=== PATIENT | female | born 1955 | race Caucasian/White ===

== ENCOUNTER 2022-08-02 11:58 | Inpatient (IN) | payer OTHER ==
[~2022-08-02] VITALS: Ht 157.5 cm; Wt 53.5 kg
--- NOTE | 2022-08-02 12:10 | NUR ---
BIBA FOR GROUND LEVEL FALL WITH SUSPECTED RIGHT HIP FRACTURE. A/O X 3, ABLE TO MAKE NEEDS KNOWN, TOLERATING WELL ON ROOM AIR.
--- NOTE | 2022-08-02 12:18 | NUR ---
MOVE SHEET SUBMITTED.
--- NOTE | 2022-08-02 12:42 | NUR ---
IV ACCESS OBTAINED VIA RIGHT CHEST PORTACATH USING STERILE TECHNIQUE. BLOOD SAMPLES OBTAINED.
[2022-08-02 12:50] LABS: WHITE BLOOD COUNT (AUTO) 3.3 K/uL (4.3-11.0)
[2022-08-02 12:54] LABS: BASOPHILS % (AUTO) 0.8 % (0.0-2.0); EOSINOPHILS % (AUTO) 2.3 % (0.0-6.0); HEMATOCRIT 27 % (33-45); HEMOGLOBIN 9.1 g/dL (11.5-14.8); LYMPHOCYTES # (AUTO) 1.1 K/uL (0.8-4.8); LYMPHOCYTES % (AUTO) 34.1 % (20.0-44.0); MEAN CORPUSCULAR HGB CONC 34 g/dl (31.0-36.0); MEAN CORPUSCULAR VOLUME 82 fL (82-100); MONOCYTES # (AUTO) 0.2 K/uL (0.1-1.30); MONOCYTES % (AUTO) 7.4 % (2.0-12.0); NEUTROPHILS # (AUTO) 1.9 K/uL (1.8-8.9); NEUTROPHILS % (AUTO) 55.4 % (43.0-81.0); PLATELET COUNT (AUTO) 170 K/uL (150-450); RED BLOOD CELL COUNT(AUTO) 3.28 MIL/uL (4.0-5.2)
[2022-08-02 12:57] LABS: CALCIUM, SERUM 8.3 mg/dL (8.5-10.1); CREATININE 0.9 mg/dL (0.6-1.3)
[2022-08-02] MEDS ORDERED: FENTANYL PF 100MCG/2ML AMPUL ONE ×3 (12:57→15:00)
[2022-08-02 13:00] LABS: POTASSIUM 2.4 mmol/L (3.5-5.1)
[2022-08-02] MEDS ORDERED: FENTANYL PF 100MCG/2ML AMPUL IV ONE ×3 (13:00→15:30)
--- NOTE | 2022-08-02 14:03 | NUR ---
MIK [phone] X [phone]
[2022-08-02] MEDS ORDERED: COLC0.6T67 PO (14:09)
[2022-08-02] MEDS ORDERED: SENN-261 PO (14:09)
[2022-08-02] MEDS ORDERED: DOCU100C36 PO (14:09)
[2022-08-02] MEDS ORDERED: APIX5TAB PO (14:09)
[2022-08-02] MEDS ORDERED: GABA300C PO (14:09)
[2022-08-02] MEDS ORDERED: ASPI-1420 PO (14:09)
[2022-08-02] MEDS ORDERED: BENZ-38 PO (14:09)
[2022-08-02] MEDS ORDERED: IBUP-1953 PO (14:09)
[2022-08-02] MEDS ORDERED: ATOR40TA PO (14:09)
[2022-08-02] MEDS ORDERED: PANT40TA49 PO (14:09)
[2022-08-02] MEDS ORDERED: SERT50TA12 PO (14:09)
[2022-08-02] MEDS ORDERED: CARV6.252 PO (14:09)
[2022-08-02] MEDS ORDERED: SCOP1PAT11 TD (14:09)
[2022-08-02] MEDS ORDERED: OXYC10TA49 PO (14:09)
[2022-08-02] MEDS ORDERED: ACET-73 PO (14:09)
[2022-08-02] MEDS ORDERED: ABEM150T PO (14:09)
[2022-08-02] MEDS ORDERED: LIDO700A30 TP (14:09)
[2022-08-02] MEDS ORDERED: FURO20TA4 PO (14:09)
[2022-08-02] MEDS ORDERED: LOSA25TA27 PO (14:09)
[2022-08-02] MEDS ORDERED: FENT1PAT10 TP (14:09)
[2022-08-02] MEDS ORDERED: MECL-159 PO (14:09)
[2022-08-02] MEDS ORDERED: POLY17PO4 PO (14:09)
[2022-08-02] MEDS ORDERED: CETI10TA14 PO (14:09)
[2022-08-02] MEDS ORDERED: ONDA-97 PO (14:09)
[2022-08-02] MEDS ORDERED: NALO0.4V2 SQ (14:09)
--- NOTE | 2022-08-02 14:15 | NUR ---
CALLED [facility] DR. LOUIE.
[2022-08-02] MEDS ORDERED: POTASSIUM CHLORIDE 20 MEQ TAB.PRT.SR PO ONE ×2 (14:28→14:30)
--- NOTE | 2022-08-02 14:39 | NUR ---
CALLED [facility]SF[facility] [phone] CASE BEING DECLINED DUE TO HIGH CENSUS ALERT PER LYNDSEY. ONLY OPEN TO STEMI, TRANSPLANT.
--- NOTE | 2022-08-02 14:43 | NUR ---
CALLED [facility] [phone] CLOSED DUE TO CAPACITY PER DAYANARA.
[2022-08-02 15:09] LABS: BILIRUBIN,URINE NEGATIVE (NEGATIVE); COLOR,URINE YELLOW (YELLOW); LEUKOCYTE ESTERASE ,URINE TRACE (NEGATIVE); NITRITE, URINE POSITIVE (NEGATIVE); PH,URINE 5.5 (5.0-8.0); PROTEIN,URINE NEGATIVE (NEGATIVE); UGLUCOSE NEGATIVE (NEGATIVE); UROBILINOGEN,URINE 0.2 EU/dL (0.2)
--- NOTE | 2022-08-02 15:15 | NUR ---
CALLED [facility] [phone] X [phone] HIGHER LEVEL OF CARE TEAM 20 MINS NOT ABLE TO LEAVE A VM.
[2022-08-02 15:20] LABS: BACTERIA,URINE 4+ /HPF (None Seen); RBC,URINE 0-2 /HPF (0-2); SQUAMOUS EPITHELIAL CELL,UR Few /HPF (None Seen); WBC,URINE 21-50 /HPF (0-3)
--- NOTE | 2022-08-02 16:07 | NUR ---
MORALES THAO FROM [facility] WILL DO PEER TO PEER.
[2022-08-02] MEDS ORDERED: HYDROMORPHONE 1 MG/1 ML DISP.SYRIN IV ONE ×2 (17:00→21:00)
[2022-08-02] MEDS ORDERED: HYDROMORPHONE 1 MG/1 ML DISP.SYRIN ONE ×2 (17:20→20:45)
--- NOTE | 2022-08-02 17:23 | NUR ---
CALLED [facility] [phone] PER KUNAL STILL AT CAPACITY AND ONLY TAKING STABLISHED [facility] PATIENTS, TRANSPLANT, AND PEDS AT THIS TIME.
--- NOTE | 2022-08-02 17:28 | NUR ---
CALLED [facility] [phone] CLOSED DUE TO CAPACITY PER JUAREZ COORDINATOR #[id number]
--- NOTE | 2022-08-02 17:29 | NUR ---
ASKED ADMITTING TO CONTACT CM AND ASK TO CALL US BACK.
--- NOTE | 2022-08-02 17:35 | NUR ---
ESTEVAN CM [phone] X [phone]
--- NOTE | 2022-08-02 17:52 | NUR ---
DERRICK BARRETO CM DIRECT NUMBER [phone] ASKED TO CALL: [facility] [phone] [facility] [phone] [facility] [phone] [facility] [phone] [facility] [phone] AUTH IS [id number] ACCEPTING HOSPITAL CAN APPLY THE AUTH. PLEASE CALL DERRICK SWAIN TO INFORM.
[2022-08-02] MEDS ORDERED: ONDANSETRON HCL/PF 4 MG/2 ML VIAL IV ONE (18:30)
--- NOTE | 2022-08-02 18:44 | NUR ---
[facility] [phone] SEEMA WILL CHECK AND CALL US BACK.
--- NOTE | 2022-08-02 18:50 | NUR ---
CALLED [facility] [phone] [facility] CONVEYOR INSTALLER
--- NOTE | 2022-08-02 18:55 | NUR ---
CALLED [facility] [phone] [facility] DOES NOT HAVE ONCOLOGY RECOVERY COACH
--- NOTE | 2022-08-02 18:57 | NUR ---
CALLED [facility] [phone] [place] DOES NOT HAVE ONCOLOGY COMPUTER TECHNOLOGY TEACHER
--- NOTE | 2022-08-02 18:58 | NUR ---
CALLED [facility] [phone] [place] DOES NOT HAVE ONCOLOGY DESKTOP ADMINISTRATOR
--- NOTE | 2022-08-02 18:59 | NUR ---
CALLED [facility] [phone] [facility] DOES NOT HAVE ONCOLOGY SOIL FERTILITY EXTENSION SPECIALIST
[2022-08-02] MEDS ORDERED: ONDANSETRON HCL/PF 4 MG/2 ML VIAL ONE (19:08)
--- NOTE | 2022-08-02 19:48 | NUR ---
PER FABRICE HERNANDEZ:DR. ANDRADE GILBERT ONCOLOGIST AT [facility] WILL REVIEW AND ACCEPT PT. AWAITING ACCEPTANCE AND PEER TO PEER.
--- NOTE | 2022-08-02 21:31 | NUR ---
faxed facesheet and radiology report to [facility] FAX#[phone]
--- NOTE | 2022-08-02 21:53 | NUR ---
PER BEKA BALTAZAR FROM [facility] DID NOT ACCEPT PT FOR HIGHER LEVEL OF CARE.
[2022-08-03] MEDS ORDERED: IV NS 0.9% 1,000 ML IV ONE (00:30)
[2022-08-03] MEDS ORDERED: CEFTRIAXONE 1 G in IV D5W 50 ML IV ONE (00:30)
[2022-08-03] MEDS ORDERED: POTASSIUM CHLORIDE 20 MEQ TAB.PRT.SR PO ONE ×2 (00:30→12:30)
[2022-08-03] MEDS ORDERED: CEFTRIAXONE 1GM BAG (ER ONLY) 50 ML IV ONE (01:24)
[2022-08-03] MEDS ORDERED: HYDROMORPHONE 1 MG/1 ML DISP.SYRIN IV ONE (01:30)
[2022-08-03] MEDS ORDERED: HYDROMORPHONE 1 MG/1 ML DISP.SYRIN ONE (01:32)
--- NOTE | 2022-08-03 02:14 | NUR ---
CALLED FOR REPORT, NURSE ON LUNCH
--- NOTE | 2022-08-03 02:28 | NUR ---
SECONF ATTEMPT FOR REPORT MADE, NURSE NOT AVAILBLE
--- NOTE | 2022-08-03 02:50 | NUR ---
REPORT GIVEN TO KWAN
[2022-08-03] MEDS ORDERED: Z GUARD REMEDY 4 OZ OINT TP PRN (03:00)
[2022-08-03] MEDS ORDERED: ACETAMINOPHEN 325 MG TABLET PO PRN (03:00)
[2022-08-03] MEDS ORDERED: NALOXONE HCL 0.4 MG/ML AMPUL IV PRN (03:00)
--- NOTE | 2022-08-03 03:05 | NUR ---
MED SURG ADMISSION RN NOTE RECEIVED A PT 67 Y.O. FEMALE FROM ER. TRANSFERRED BY A GURTEREZA A/O X3 BARBADIAN SPEAKING. FAMILY AT BEDSIDE. CODE STATUS OBTAINED FROM PT AND SON. PT DX PATHOLOGICAL RIGHT HIP FRACTURE SECONDARY TO HYPOKALEMIA. PT NOTED WITH PAIN ON THE RIGHT HIP. DUE MEDS GIVEN. IV ACCESS ON THE RIGHT CHEST PORTACATH INTACT AND PATENT. KEPT PT CLEAN AND DRY. NOTED COLON CATH IN PLACE DRAINING CLEAR YELLOW COLOR URINE. SIDE RAILS UPX2. SKIN ASSESSMENT DONE. PT BELONGING CHECKLIST DONE. BED IS LOCKED AND IN LOWEST POSITION. WILL CONTINUE TO MONITOR
--- NOTE | 2022-08-03 03:15 | NUR ---
PT TRANSPORTED TO ROOM 118 VIA GURNEY HANDOFF GIVEN TO RN AT BEDSIDE
[2022-08-03] MEDS: ENOXAPARIN SODIUM 40 MG/0.4 ML DISP.SYRIN SQ SCH ×2 (03:31→21:37)
[2022-08-03 04:00] VITALS: BP 175/86; TEMP 99.4
[2022-08-03] MEDS: HYDROMORPHONE INJ 2 MG/ML DISP.SYRIN IV PRN ×3 (05:36→19:35)
--- NOTE | 2022-08-03 06:55 | NUR ---
MS RN CLOSING NOTE PT AWAKE MOANING IN PAIN. PAIN MED IS GIVEN ORDERED. PT IS A/OX3. SON AT BEDSIDE. ALL DUE MEDS GIVEN. IV ACCESS ON THE RIGHT CHEST PORTACATH INTACT AND PATENT. KEPT PT CLEAN AND DRY. NOTED COLON CATH IN PLACE DRAINING CLEAR YELLOW COLOR URINE. SIDE RAILS UPX2. CALL LIGHT WITH IN REACH. BED IS LOCKED AND IN LOWEST POSITION. WILL ENDORSE CARE TO AM SHIFT RN.
[2022-08-03 07:01] LABS: BASOPHILS % (AUTO) 0.3 % (0.0-2.0); EOSINOPHILS % (AUTO) 0.8 % (0.0-6.0); HEMATOCRIT 30 % (33-45); LYMPHOCYTES # (AUTO) 0.8 K/uL (0.8-4.8); LYMPHOCYTES % (AUTO) 15.7 % (20.0-44.0); MEAN CORPUSCULAR HGB CONC 33 g/dl (31.0-36.0); MEAN CORPUSCULAR VOLUME 83 fL (82-100); MONOCYTES # (AUTO) 0.3 K/uL (0.1-1.30); MONOCYTES % (AUTO) 5.5 % (2.0-12.0); NEUTROPHILS # (AUTO) 3.8 K/uL (1.8-8.9); NEUTROPHILS % (AUTO) 77.7 % (43.0-81.0); PLATELET COUNT (AUTO) 203 K/uL (150-450); RED BLOOD CELL COUNT(AUTO) 3.62 MIL/uL (4.0-5.2); WHITE BLOOD COUNT (AUTO) 4.9 K/uL (4.3-11.0)
--- NOTE | 2022-08-03 07:21 | NUR ---
ms rn received on bed, awake, alertx3,not in any form of distress,came in w/ right hip fracture, portha cath at right upper chest, patent, repositioned for comfort, son at bedside,all needs attended.
[2022-08-03] MEDS ORDERED: PANTOPRAZOLE 40 MG TABLET.DR PO SCH (07:30)
[2022-08-03 07:40] LABS: ALBUMIN 2.7 g/dL (3.4-5.0); BILIRUBIN,TOTAL 0.4 mg/dL (0.2-1.0); CALCIUM, SERUM 8.7 mg/dL (8.5-10.1); CREATININE 0.7 mg/dL (0.6-1.3); PHOSPHORUS 3.2 mg/dL (2.5-4.9); TOTAL PROTEIN, SERUM 7.4 g/dL (6.4-8.2)
[2022-08-03 08:03] LABS: MAGNESIUM 1.2 mg/dL (1.8-2.4)
[2022-08-03 08:04] LABS: POTASSIUM 2.5 mmol/L (3.5-5.1)
--- NOTE | 2022-08-03 08:30 | NUR ---
ms rn texted dr. alba to reconcile meds.
[2022-08-03] MEDS: COLCHICINE 0.6 MG TABLET PO SCH (09:20)
[2022-08-03] MEDS: LOSARTAN POTASSIUM 25 MG TABLET PO SCH (09:20)
[2022-08-03] MEDS: FUROSEMIDE 20 MG TABLET PO SCH (09:20)
[2022-08-03] MEDS: PANTOPRAZOLE 40 MG TABLET.DR PO SCH (09:21)
[2022-08-03] MEDS: ASPIRIN EC 81 MG TABLET.DR PO SCH (09:21)
[2022-08-03] MEDS: CARVEDILOL 6.25 MG TABLET PO SCH ×2 (09:21→17:25)
[2022-08-03] MEDS ORDERED: MAGNESIUM OXIDE 400 MG TABLET PO ONE (10:30)
--- NOTE | 2022-08-03 11:00 | NUR ---
ms yarn preparation supervisor here asking about transferring to [facility], caseworker protective services took care of transfer, w/c is still pending.
[2022-08-03] MEDS: FENTANYL PATCH (100 MCG/HR) 100 MCG/HR PATCH.TD72 TD SCH (12:24)
[2022-08-03] MEDS: HYDROCODONE/APAP 5/325MG TABLET PO PRN ×3 (12:33→20:48)
[2022-08-03 16:00] VITALS: BP 130/66; TEMP 98.4
[2022-08-03] MEDS: ONDANSETRON HCL/PF 4 MG/2 ML VIAL IVP PRN (16:56)
[2022-08-03] MEDS: ATORVASTATIN 40 MG TABLET PO SCH (17:25)
[2022-08-03] MEDS: GABAPENTIN 300 MG CAPSULE PO SCH (17:25)
--- NOTE | 2022-08-03 18:00 | NUR ---
ms rn patient refused to be repositioned the whole shift, explained the benefits bur still refused.
--- NOTE | 2022-08-03 18:19 | NUR ---
ms rn on bed,no distress noted, medicated for pain.
--- NOTE | 2022-08-03 19:28 | NUR ---
RN OPENING NOTE PATIENT AWAKE IN BED. A/OX3. NO S/S OF DISTRESS, BREATHING WITHOUT DIFFICULTY ON 2L NC. RCW MAURILIO CATH SL INTACT AND PATENT. SAFETY MEASURES IN PLACE: BED LOCKED AND AT LOWEST POSITION, RAILS UP X2, CALL DAVILA WITHIN REACH. WILL CONTINUE TO MONITOR PATIENT.
[2022-08-03 20:00] VITALS: BP 120/62; TEMP 98.6
[2022-08-03] MEDS: CEFTRIAXONE 1 G in IV D5W 50 ML IV SCH (21:36)
--- NOTE | 2022-08-03 22:00 | NUR ---
RN NOTE PATIENT HAS SEVERE BREAK-THROUGH PAIN. ON-CALL MD, YELITZA BOSCH, CONTACTED FOR POSSIBLE ONE TIME EXTRA DOSE. AWAITING RESPONSE FROM MD. PATIENT STABLE; WILL CONTINUE TO MONITOR PATIENT.
--- NOTE | 2022-08-03 22:04 | NUR ---
RN NOTE SAMUEL FROM [facility] CALLED REGARDING UPDATE ON PATIENT. PER SAMUEL, NO MD OR ROOM ASSIGNED TO PATIENT, BUT THERE IS A POSSIBILITY OF ADMITTANCE POSSIBLY BY THIS WEEKEND. SAMUEL STATED SHE WILL BE IN CONTACT WITH CASE MANAGEMENT TOMORROW WITH FURTHER UPDATE. PATIENT O/W STABLE; WILL CONTINUE TO MONITOR PATIENT.
--- NOTE | 2022-08-03 22:51 | NUR ---
RN NOTE PER DOMENIC, ON-CALL, ORDER GIVEN TO CHANGE DILAUDID FROM 0.5MG EVERY 4 HOURS PRN TO DILAUDID 1MG EVERY 3 HOURS PRN. ORDER PLACED. PATIENT O/W STABLE; WILL CONTINUE TO MONITOR.
[2022-08-03] MEDS: HYDROMORPHONE 1 MG/1 ML DISP.SYRIN IV PRN (23:29)
[2022-08-04] MEDS: HYDROCODONE/APAP 5/325MG TABLET PO PRN ×4 (00:41→23:34)
[2022-08-04] MEDS: HYDROMORPHONE 1 MG/1 ML DISP.SYRIN IV PRN ×4 (02:29→20:42)
[2022-08-04 04:00] VITALS: BP 140/73; TEMP 98.6
--- NOTE | 2022-08-04 06:26 | NUR ---
RN CLOSING NOTE PATIENT ASLEEP IN BED, WITH SON AT BEDSIDE. A/OX3. NO S/S OF DISTRESS, BREATHING WITHOUT DIFFICULTY ON 2L NC. RCW MAURILIO CATH INTACT AND PATENT, NO SIGNS OF BLEEDING OR DISLODGEMENT. SAFETY MEASURES IN PLACE: BED LOCKED AND AT LOWEST POSITION, RAILS UP X2, CALL DAVILA WITHIN REACH. WILL ENDORSE TO NEXT SHIFT FOR AZEEM.
[2022-08-04 06:43] LABS: BASOPHILS % (AUTO) 0.4 % (0.0-2.0); EOSINOPHILS % (AUTO) 3.3 % (0.0-6.0); HEMATOCRIT 27 % (33-45); HEMOGLOBIN 8.9 g/dL (11.5-14.8); LYMPHOCYTES # (AUTO) 1.2 K/uL (0.8-4.8); MEAN CORPUSCULAR HGB CONC 33 g/dl (31.0-36.0); MEAN CORPUSCULAR VOLUME 82 fL (82-100); MONOCYTES # (AUTO) 0.3 K/uL (0.1-1.30); MONOCYTES % (AUTO) 7.2 % (2.0-12.0); NEUTROPHILS # (AUTO) 2.8 K/uL (1.8-8.9); NEUTROPHILS % (AUTO) 62.1 % (43.0-81.0); PLATELET COUNT (AUTO) 190 K/uL (150-450); RED BLOOD CELL COUNT(AUTO) 3.28 MIL/uL (4.0-5.2); WHITE BLOOD COUNT (AUTO) 4.6 K/uL (4.3-11.0)
[2022-08-04 07:25] LABS: CALCIUM, SERUM 8.6 mg/dL (8.5-10.1); CREATININE 0.7 mg/dL (0.6-1.3); MAGNESIUM 1.3 mg/dL (1.8-2.4); POTASSIUM 3.5 mmol/L (3.5-5.1)
--- NOTE | 2022-08-04 07:51 | NUR ---
RN OPENING NOTE PATIENT RECEIVED IN BED ASLEEP WITH FAMILY AT BEDSIDE. ON 2L OF O2 VIA NASAL CANNULA WITH NO S/S OF DISTRESS, BREATHING WITHOUT DIFFICULTY. RCW MAURILIO CATH INTACT AND PATENT, NO SIGNS OF BLEEDING OR DISLODGEMENT. SAFETY MEASURES IN PLACE: BED LOCKED AND AT LOWEST POSITION, RAILS UP X3, CALL DAVILA WITHIN REACH. WILL CONTINUE TO MONITOR.
[2022-08-04 08:00] VITALS: BP 136/69; TEMP 98.2
[2022-08-04] MEDS: LOSARTAN POTASSIUM 25 MG TABLET PO SCH (08:28)
[2022-08-04] MEDS: COLCHICINE 0.6 MG TABLET PO SCH (08:28)
[2022-08-04] MEDS: FUROSEMIDE 20 MG TABLET PO SCH (08:29)
[2022-08-04] MEDS: CARVEDILOL 6.25 MG TABLET PO SCH ×2 (08:29→16:21)
[2022-08-04] MEDS: ASPIRIN EC 81 MG TABLET.DR PO SCH (08:29)
[2022-08-04] MEDS: PANTOPRAZOLE 40 MG TABLET.DR PO SCH (08:29)
[2022-08-04] MEDS ORDERED: MAGNESIUM OXIDE 400 MG TABLET PO ONE (10:00)
[2022-08-04 16:00] VITALS: BP 133/70; TEMP 98
[2022-08-04] MEDS: ONDANSETRON HCL/PF 4 MG/2 ML VIAL IVP PRN (16:00)
[2022-08-04] MEDS: GABAPENTIN 300 MG CAPSULE PO SCH (18:20)
[2022-08-04] MEDS: ATORVASTATIN 40 MG TABLET PO SCH (18:20)
--- NOTE | 2022-08-04 19:19 | NUR ---
RN CLOSING NOTE PATIENT IN BED RESTING WITH FAMILY AT BEDSIDE. ON 2L OF O2 VIA NASAL CANNULA SATING AT 98% WITH NO S/S OF DISTRESS, BREATHING WITHOUT DIFFICULTY. RCW MAURILIO CATH INTACT AND PATENT, NO SIGNS OF BLEEDING OR DISLODGEMENT. COLON CATHETER IN PLACE DRAINING JENNIFER COLORED URINE. ALL DUE MEDS GIVEN AND PATIENT KEPT CLEAN AND COMFORTABLE. PAIN MEDICATION GIVEN AND NO COMPLAINTS OF DISTRESS AT THIS TIME. SAFETY MEASURES IN PLACE: BED LOCKED AND AT LOWEST POSITION, RAILS UP X3, CALL DAVILA WITHIN REACH. WILL ENDORSE TO ONCOMING SHIFT FOR AZEEM.
--- NOTE | 2022-08-04 20:00 | NUR ---
RECEIVED PATIENT IN BED, ALERT/ORIENTED X4, 2LPM VIA NC, RIGHT HIP PAIN, 9/10, BEDREST, COLON CATHETER DRAINING WITH CLEAR AND YELLOW URINE. RIGHT CHEST WALL [id number], DRESSING DRY AND INTACT. KEPT SAFE, WILL CONTINUE TO MONITOR.
[2022-08-04 20:30] VITALS: BP 124/71; TEMP 98.6
[2022-08-04] MEDS: CEFTRIAXONE 1 G in IV D5W 50 ML IV SCH (21:02)
[2022-08-04] MEDS: ENOXAPARIN SODIUM 40 MG/0.4 ML DISP.SYRIN SQ SCH (21:10)
[2022-08-05] VITALS: BP 104/58; TEMP 99.1
[2022-08-05] MEDS: HYDROMORPHONE 1 MG/1 ML DISP.SYRIN IV PRN ×6 (01:19→23:29)
[2022-08-05] MEDS: HYDROCODONE/APAP 5/325MG TABLET PO PRN ×2 (03:44→13:45)
[2022-08-05 04:00] VITALS: BP 128/60; TEMP 97.9
--- NOTE | 2022-08-05 06:30 | NUR ---
PATHOLOGIC RIGHT HIP FRACTURE, S/P FALL AT HOME, ALERT/ORIENTED X4, ROOM AIR, SRI LANKAN SPEAKING ONLY, HX OF RIGHT HIP CANCER, WITH RADIATION THERAPY, COLON CATHETER FOR PAIN MANAGEMENT AROUND THE CLOCK, NORCO 1 TAB Q4HRS AND DILAUDID 1 MG IV Q3HRS AND F[place]ANYL PATCH Q72 HRS. RIGHT CHEST WALL [id number]. AWAITING TRANSFER TO [facility]. FOR A HIGHER LEVEL OF CARE.
--- NOTE | 2022-08-05 07:20 | NUR ---
Received pt in bed, awake, breathing even and unlabored, on pain management, [place] given at 0528, no s/s of acute distress. All safety protocol in placed. Will continue to monitor
[2022-08-05 08:00] VITALS: BP 128/64; TEMP 98.2
[2022-08-05] MEDS: ASPIRIN EC 81 MG TABLET.DR PO SCH (08:36)
[2022-08-05] MEDS: PANTOPRAZOLE 40 MG TABLET.DR PO SCH (08:36)
[2022-08-05] MEDS: FUROSEMIDE 20 MG TABLET PO SCH (08:36)
[2022-08-05] MEDS: CARVEDILOL 6.25 MG TABLET PO SCH ×2 (08:37→17:09)
[2022-08-05] MEDS: LOSARTAN POTASSIUM 25 MG TABLET PO SCH (08:37)
[2022-08-05] MEDS: COLCHICINE 0.6 MG TABLET PO SCH (08:37)
[2022-08-05 16:00] VITALS: BP 132/70; TEMP 98.4
[2022-08-05] MEDS: GABAPENTIN 300 MG CAPSULE PO SCH (17:09)
[2022-08-05] MEDS: ATORVASTATIN 40 MG TABLET PO SCH (17:10)
--- NOTE | 2022-08-05 19:00 | NUR ---
PATIENT REMAINS IN STABLE CONDITION. ALL DUE MEDS GIVEN ORDERED. SAFETY PROTOCOLS IN PLACE AT ALL TIMES. WILL BE ENDORSED TO PM SHIFT NURSE FOR AZEEM
[2022-08-05 20:00] VITALS: BP 106/60; TEMP 98
--- NOTE | 2022-08-05 20:00 | NUR ---
MS RN NOTE PT IN BED AWAKE. A/O X 4, DANISH SPEAKING. NO SOB, NO DISTRESS OR DISCOMFORT NOTED. NO S/S OF PAIN NOTED. ON O2 2L VIA N/C. RCW WITH PROTA CATH INTACT. F/C INTACT AND PATENT DRAINING YELLOWISH COLOR URINE. ALL NEEDS ATTENDED. KEPT HER DRY AND CLEAN. VSS. CONTINUE TO MONITOR HER.
[2022-08-05] MEDS: CEFTRIAXONE 1 G in IV D5W 50 ML IV SCH (21:29)
[2022-08-05] MEDS: ENOXAPARIN SODIUM 40 MG/0.4 ML DISP.SYRIN SQ SCH (21:29)
[2022-08-06] VITALS: BP 115/63; TEMP 98.3
[2022-08-06] MEDS: HYDROMORPHONE 1 MG/1 ML DISP.SYRIN IV PRN ×3 (02:30→18:50)
--- NOTE | 2022-08-06 06:37 | NUR ---
M/S RN NOTE PT IN BED ALSEEP, AROUSABLE. NO DISTRESS OR DISCOMFORT NOTED. NO S/S OF PAIN NOTED. KEPT HER DRY AND CLEAN. ALL NEEDS ATTENDED. WILL ENDORSE TO DAY SHIFT NURSE FOR CONTINUE TO CARE.
--- NOTE | 2022-08-06 07:00 | NUR ---
MS RN OPENING NOTES: RECEIVED PT IN BED ASLEEP EASILY AROUSED WITH STIMULI. RELATIVE AT BED SIDE. NO SOB OR CARDIAC DISTRESS NOTED, ON O2 INHALATION @ 2LPM VIA NC. PT A/O X 4 WITH EPISODES OF CONFUSION AND FORGETFULNESS. IV ACCESS : MAURILIO CATH ON RCW PATENT INTACT AND INFUSING NS @KVO. SAFETY MEASURES MAINTAINED: BED LOCKED AND IN LOWEST POSITION, SIDE RAIL UP X 2.CALL LIGHT IN EASY REACH AND WILL MONITOR PT ACCORDINGLY.
[2022-08-06 07:12] LABS: BASOPHILS % (AUTO) 0.5 % (0.0-2.0); EOSINOPHILS % (AUTO) 2.3 % (0.0-6.0); HEMATOCRIT 26 % (33-45); HEMOGLOBIN 8.7 g/dL (11.5-14.8); LYMPHOCYTES # (AUTO) 1.3 K/uL (0.8-4.8); MEAN CORPUSCULAR HGB CONC 33 g/dl (31.0-36.0); MEAN CORPUSCULAR VOLUME 82 fL (82-100); MONOCYTES # (AUTO) 0.5 K/uL (0.1-1.30); NEUTROPHILS % (AUTO) 52.2 % (43.0-81.0); PLATELET COUNT (AUTO) 245 K/uL (150-450); RED BLOOD CELL COUNT(AUTO) 3.21 MIL/uL (4.0-5.2); WHITE BLOOD COUNT (AUTO) 3.8 K/uL (4.3-11.0)
[2022-08-06 07:26] LABS: CALCIUM, SERUM 8.9 mg/dL (8.5-10.1); CREATININE 0.7 mg/dL (0.6-1.3); MAGNESIUM 1.6 mg/dL (1.8-2.4); PHOSPHORUS 3.6 mg/dL (2.5-4.9); POTASSIUM 3.7 mmol/L (3.5-5.1)
[2022-08-06] MEDS: PANTOPRAZOLE 40 MG TABLET.DR PO SCH (07:27)
[2022-08-06 08:00] VITALS: BP 133/69; TEMP 98.2
[2022-08-06] MEDS: FUROSEMIDE 20 MG TABLET PO SCH (08:36)
[2022-08-06] MEDS: ASPIRIN EC 81 MG TABLET.DR PO SCH (08:37)
[2022-08-06] MEDS: CARVEDILOL 6.25 MG TABLET PO SCH ×2 (08:37→17:01)
[2022-08-06] MEDS: COLCHICINE 0.6 MG TABLET PO SCH (08:37)
[2022-08-06] MEDS: LOSARTAN POTASSIUM 25 MG TABLET PO SCH (08:37)
[2022-08-06] MEDS ORDERED: MAGNESIUM OXIDE 400 MG TABLET PO ONE (10:00)
[2022-08-06] MEDS: HYDROCODONE/APAP 5/325MG TABLET PO PRN ×3 (12:05→22:54)
--- NOTE | 2022-08-06 12:05 | NUR ---
PAIN MANAGEMENT: PAIN SCALE 6/10 ON RIGHT HIP. NORCO 5-325 MG PO GIVEN.
[2022-08-06] MEDS ORDERED: SENNOSIDES/DOCUSATE SODIUM 1 TAB TABLET PO PRN (12:30)
--- NOTE | 2022-08-06 12:37 | NUR ---
PAIN MANAGEMENT:PAIN SCALE OF 9/10 DILAUDID 1MG IV GIVEN.BP IS 120/68 HR 78
[2022-08-06] MEDS: DOCUSATE SODIUM 100 MG CAPSULE PO SCH ×2 (12:58→17:01)
[2022-08-06] MEDS: FENTANYL PATCH (100 MCG/HR) 100 MCG/HR PATCH.TD72 TD SCH (12:59)
[2022-08-06 16:00] VITALS: BP 136/77; TEMP 98.5
[2022-08-06] MEDS: ATORVASTATIN 40 MG TABLET PO SCH (17:01)
[2022-08-06] MEDS: GABAPENTIN 300 MG CAPSULE PO SCH (17:01)
--- NOTE | 2022-08-06 17:54 | NUR ---
PAIN MANAGEMENT: PAIN SCALE 6/10 ON R HIP. NORCO 5-325MG/TAB PO GIVEN.
--- NOTE | 2022-08-06 18:50 | NUR ---
PAIN AMNAGEMENT: PAIN SCALE 10/10 [facility] HIP. DILAUDID 1MG IV GIVEN.
--- NOTE | 2022-08-06 18:57 | NUR ---
MS RN CLOSING NOTES: PT IN BED AWAKE, ALERT AND ORIENTED X 2-3 GREENLANDIC SPEAKING. WITH EPISODES OF CONFUSION AND FORGETFULNESS. FAMILY AT BED SIDE. ON O2 INHALATION @2LPM VIA NASAL CANULA. IV ACCESS: RCW MAURILIO CATH PATENT INTACT AND INFUSING NS KVO. ON PAIN MANAGEMENT ORDERED. COLON CATHETER IN PLACE, DRAINING CLEAR YELLOW COLORED URINE VIA GRAVITY. SAFETY MEASURES MAINTAINED: BED LOCKED ADN IN LOWEST POSITION, SIDE RAILS UP X 2. CALL LIGHT IN EASY REACH AND WILL ENDORSE TO BUCKLE GLUER RN FOR CONTINUITY OF CARE.
--- NOTE | 2022-08-06 19:30 | NUR ---
RN OPENING NOTES RECEIVED PT RESTING IN BED EASILY AROUSABLE, DAUGHTER AT BEDSIDE. A/O X 2-3, IRAQI SPEAKING, DAUGHTER ABLE TO TRANSLATE. ON O2 INHALATION @2LPM VIA NASAL CANULA. IV ACCESS: RCW MAURILIO CATH PATENT INTACT AND INFUSING NS KVO. ON PAIN MANAGEMENT ORDERED. COLON CATHETER IN PLACE, DRAINING CLEAR YELLOW COLORED URINE VIA GRAVITY. SAFETY MEASURES IN PLACE: BED LOCKED AND IN LOWEST POSITION, SIDE RAILS UP X2, BED ALARM ON, CALL LIGHT IN EASY REACH. WILL CONTINUE TO MONITOR AND ASSIST.
[2022-08-06 20:00] VITALS: BP 125/67; TEMP 98.3
[2022-08-06] MEDS: CEFTRIAXONE 1 G in IV D5W 50 ML IV SCH (22:09)
--- NOTE | 2022-08-06 22:10 | NUR ---
RN NOTE: PAIN REASSESSED, PT SAYS THERE IS SOME MILD PAIN. OFFERED DUE PAIN MEDS, SAYS SHE WILL WAIT FOR A LITTLE BIT MORE. PT AWARE OF TIMING OF PAIN MEDICATIONS. PT ALSO REPOSITIONED TO LEFT LATERAL POSITION, PT VERBALIZED SOME DISCOMFORT BUT ABLE TO TOLERATE. COMFORTABLE FOR NOW AND WILL REASSESS AGAIN.
[2022-08-06] MEDS: ENOXAPARIN SODIUM 40 MG/0.4 ML DISP.SYRIN SQ SCH (22:11)
--- NOTE | 2022-08-06 22:59 | NUR ---
RN NOTE: PT C/O 08/14 PAIN ON R HIP. GIVEN NORCO 5-325 PRESCRIBED. WILL REASSESS IN 1 HOUR.
--- NOTE | 2022-08-06 23:50 | NUR ---
RN NOTE: GAVIOTA LEFT FOR THE NIGHT, HER BROTHER CAME IN TO RELIEVE HER AND WILL STAY THROUGH THE NIGHT.
[2022-08-07] VITALS: BP 121/61; TEMP 98.6
[2022-08-07] MEDS: HYDROMORPHONE 1 MG/1 ML DISP.SYRIN IV PRN ×5 (00:05→22:14)
--- NOTE | 2022-08-07 00:12 | NUR ---
RN NOTE: PT STILL C/O PAIN 10/15. PT STATES THE NORCO 5-325 NEVER HELPED. WILL REASSESS IN 1 HOUR. Addendum: 08/07/22 at 0013 by JUANITA WHITMAN RN GIVEN DILAUDID 1 MG PRESCRIBED.
[2022-08-07] MEDS: cetrizine 10 MG TABLET PO PRN (01:22)
--- NOTE | 2022-08-07 01:28 | NUR ---
RN NOTE: PT C/O OF ITCHINESS ON BACK, NO RASH/REDNESS NOTED. PROVIDED LOTION AND GIVEN ZYRTEC 10 MG PRESCRIBED. OFFERED TO CLEAN HER AND CHANGE SHEETS, INFORMED THAT SHE WILL HAVE TO BE MOVED AROUND, PT NOTED TO BE HESITANT BUT WILL TRY.
--- NOTE | 2022-08-07 02:13 | NUR ---
RN NOTE: ASSESSED PAIN AND OFFERED PAIN MEDICATION, PT SAID SHE IS OKAY AND TOLERATING WELL FOR NOW.
--- NOTE | 2022-08-07 03:16 | NUR ---
RN NOTE: C/O PAIN 09/14 ON R HIP. BP 141/73, HR 108. ADMINISTERED DILAUDID 1 MG PRESCRIBED.
[2022-08-07 04:00] VITALS: BP 141/73; TEMP 98
--- NOTE | 2022-08-07 06:59 | NUR ---
RN CLOSING NOTES PT AWAKE IN BED, SON AT BEDSIDE. A/O X 2-3, AMERICAN SPEAKING, SON ABLE TO TRANSLATE. STABLE ON O2 INHALATION @2LPM VIA NASAL CANULA, O2 SAT 96%. IV ACCESS: RCW MAURILIO CATH PATENT INTACT AND INFUSING NS KVO. ON PAIN MANAGEMENT ORDERED. COLON CATHETER IN PLACE, DRAINING CLEAR YELLOW COLORED URINE VIA GRAVITY, TOTAL 950 ML. ALL CARE PROVIDED AND MEDS TOLERATED WELL. TURNED AND REPOSITIONED DURING SHIFT. SAFETY MEASURES MAINTAINED: BED LOCKED AND IN LOWEST POSITION, SIDE RAILS UP X2, BED ALARM ON, CALL LIGHT IN EASY REACH. WILL ENDORSE AZEEM TO DAY SHIFT NURSE.
[2022-08-07] MEDS: PANTOPRAZOLE 40 MG TABLET.DR PO SCH (07:23)
--- NOTE | 2022-08-07 07:51 | NUR ---
HYDROMORPHONE 1MG IV GIVEN DUE TO C/O PAIN ON RIGHT HIP 09/14.
[2022-08-07 08:00] VITALS: BP 153/67; TEMP 98
[2022-08-07] MEDS: DOCUSATE SODIUM 100 MG CAPSULE PO SCH ×2 (08:27→17:01)
[2022-08-07] MEDS: CARVEDILOL 6.25 MG TABLET PO SCH ×2 (08:27→17:01)
[2022-08-07] MEDS: FUROSEMIDE 20 MG TABLET PO SCH (08:27)
[2022-08-07] MEDS: LOSARTAN POTASSIUM 25 MG TABLET PO SCH (08:27)
[2022-08-07] MEDS: COLCHICINE 0.6 MG TABLET PO SCH (08:27)
[2022-08-07] MEDS: ASPIRIN EC 81 MG TABLET.DR PO SCH (08:28)
[2022-08-07] MEDS ORDERED: MAGNESIUM OXIDE 400 MG TABLET PO ONE (10:00)
[2022-08-07] MEDS ORDERED: SORBITOL SOLUTION 70% 30 ML SOLUTION PO ONE (13:00)
[2022-08-07 16:00] VITALS: BP 152/76; TEMP 98.1
[2022-08-07] MEDS: GABAPENTIN 300 MG CAPSULE PO SCH (17:01)
[2022-08-07] MEDS: ATORVASTATIN 40 MG TABLET PO SCH (17:01)
[2022-08-07 20:00] VITALS: BP 129/67; TEMP 99.1
--- NOTE | 2022-08-07 20:20 | NUR ---
RN OPENING NOTES RECEIVED PATIENT IN BED AWAKE ALERT ORIENTED X 3, PERSIAN SPEAKING, DAUGHTER ABLE TO TRANSLATE. DAUGHTER AT BEDSIDE. ON O2 INHALATION @2LPM VIA NASAL CANULA. IV ACCESS: RCW MAURILIO CATH PATENT INTACT AND INFUSING NS KVO. ON PAIN MANAGEMENT ORDERED. COLON CATHETER IN PLACE, DRAINING WELL CLEAR YELLOW COLORED URINE VIA GRAVITY. SAFETY MEASURES IN PLACE: BED LOCKED AND IN LOWEST POSITION, SIDE RAILS UP X2, BED ALARM ON, CALL LIGHT IN EASY REACH.
[2022-08-07] MEDS: CEFTRIAXONE 1 G in IV D5W 50 ML IV SCH (21:44)
[2022-08-07] MEDS: ENOXAPARIN SODIUM 40 MG/0.4 ML DISP.SYRIN SQ SCH (21:53)
[2022-08-07] MEDS: LACTULOSE 10 G/15 ML UDC (PYXIS) PO PRN (22:13)
--- NOTE | 2022-08-08 00:05 | NUR ---
RECEIVED A CALL FROM DERRICK DEY, ASKING IF THE REFRIGERATION OPERATOR MENTIONED ANYTHING REGARDING REFERRAL TO [facility], BECAUSE [facility] IS NOT ACCEPTING PATIENT, INFORMED THAT FROM 08/04 CM NOTES [facility] IS NOT ACCEPTING PATIENTS AT THIS TIME, PER HER SHE WILL CONTACT [facility] AGAIN..
--- NOTE | 2022-08-08 00:21 | NUR ---
RECEIVED A CALL FROM HUGO FROM TRANSFER CENTER AT [facility], SHE ASKED FOR UPDATE, AND PER HER THEY WAITING FOR FINANCE TO CLEARED PATIENT AND PROCEED WITH THE TRANSFER.
--- NOTE | 2022-08-08 05:51 | NUR ---
RN NOTES AT THIS TIME PATIENT AND DAUGHTER AT BEDSIDE REFUSED VITALS.
--- NOTE | 2022-08-08 06:53 | NUR ---
CLOSING NOTES, IN BED AWAKE AT THIS TIME, ALERT ORIENTED X3, CHINESE SPEAKING, NASAL CANULA @ 2LPM, NO SOB/ACUTE DISTRESS NOTED, NORMAL SINU RHYTHM IN TELE MONITOR, DAUGHTER AT BEDSIDE, ON PAIN MANAGEMENT, OFFER PAIN MEDICATION SALES SERVICE ASSISTANT, PER DAUGHTER NOT AT THAT TIME, BECAUSE MOM BARELY WAS FALLING ASLEEP, NO S./S OF PAIN AT THAT TIME, REFUSED 0400 VITAL SIGNS, REFUSED CLEANING PATIENT, LACTULOSE GIVEN LAST NIGHT FOS CONSTIPATION, NO BM, ON AFEBRILE, ALL SAFETY PRECAUTIONS IN PLACED, BED ALARM ON, CALL LIGHT W/I REACH, WILL ENDORSE CONTINUITY OF CARE TO ONCOMING NURSE.
[2022-08-08 07:20] LABS: BASOPHILS % (AUTO) 0.3 % (0.0-2.0); EOSINOPHILS % (AUTO) 1.3 % (0.0-6.0); HEMATOCRIT 25 % (33-45); HEMOGLOBIN 8.3 g/dL (11.5-14.8); LYMPHOCYTES # (AUTO) 1.5 K/uL (0.8-4.8); LYMPHOCYTES % (AUTO) 26.8 % (20.0-44.0); MEAN CORPUSCULAR HGB CONC 33 g/dl (31.0-36.0); MEAN CORPUSCULAR VOLUME 83 fL (82-100); MONOCYTES # (AUTO) 0.7 K/uL (0.1-1.30); MONOCYTES % (AUTO) 11.9 % (2.0-12.0); NEUTROPHILS # (AUTO) 3.4 K/uL (1.8-8.9); NEUTROPHILS % (AUTO) 59.7 % (43.0-81.0); PLATELET COUNT (AUTO) 240 K/uL (150-450); RED BLOOD CELL COUNT(AUTO) 3.07 MIL/uL (4.0-5.2); WHITE BLOOD COUNT (AUTO) 5.7 K/uL (4.3-11.0)
--- NOTE | 2022-08-08 07:40 | NUR ---
RN OPENING NOTES RECEIVED PATIENT AWAKE IN BED AWAKE ALERT ORIENTED X 3, FINNISH SPEAKING, DAUGHTER ABLE TO TRANSLATE. DAUGHTER AT BEDSIDE. ON O2 INHALATION @2LPM VIA NASAL CANULA. IV ACCESS: RCW MAURILIO CATH PATENT INTACT AND INFUSING NS KVO. ON PAIN MANAGEMENT ORDERED.SAFETY MEASURES IN PLACE: BED LOCKED AND IN LOWEST POSITION, SIDE RAILS UP X2, BED ALARM ON, CALL LIGHT IN EASY REACH. WILL CONTINUE TO MONITOR.
[2022-08-08 07:52] LABS: CALCIUM, SERUM 9.2 mg/dL (8.5-10.1); CREATININE 0.6 mg/dL (0.6-1.3); MAGNESIUM 1.8 mg/dL (1.8-2.4); PHOSPHORUS 4.2 mg/dL (2.5-4.9); POTASSIUM 3.7 mmol/L (3.5-5.1)
[2022-08-08] MEDS: COLCHICINE 0.6 MG TABLET PO SCH (08:23)
[2022-08-08] MEDS: DOCUSATE SODIUM 100 MG CAPSULE PO SCH ×4 (08:23→16:44)
[2022-08-08] MEDS: ASPIRIN EC 81 MG TABLET.DR PO SCH (08:23)
[2022-08-08] MEDS: PANTOPRAZOLE 40 MG TABLET.DR PO SCH (08:23)
[2022-08-08] MEDS: CARVEDILOL 6.25 MG TABLET PO SCH ×2 (08:24→16:44)
[2022-08-08] MEDS: LOSARTAN POTASSIUM 25 MG TABLET PO SCH (08:24)
[2022-08-08] MEDS: FUROSEMIDE 20 MG TABLET PO SCH (08:24)
[2022-08-08] MEDS: HYDROMORPHONE 1 MG/1 ML DISP.SYRIN IV PRN ×3 (08:25→21:34)
[2022-08-08 11:01] VITALS: BP 129/65; TEMP 98.3
[2022-08-08] MEDS: LACTULOSE 10 G/15 ML UDC (PYXIS) PO PRN (15:53)
[2022-08-08] MEDS ORDERED: CEFTRIAXONE 1 G in IV D5W 50 ML IV SCH (16:00)
[2022-08-08] MEDS: GABAPENTIN 300 MG CAPSULE PO SCH (17:05)
[2022-08-08] MEDS: ATORVASTATIN 40 MG TABLET PO SCH (17:05)
[2022-08-08 17:32] VITALS: BP 137/67; TEMP 99
--- NOTE | 2022-08-08 18:00 | NUR ---
RN NOTES LACTULOSE WAS GIVEN PER PATIENT'S REQUEST FOR CONSTIPATION. WILL MONITOR.
[2022-08-08] MEDS: HYDROCODONE/APAP 5/325MG TABLET PO PRN (18:01)
--- NOTE | 2022-08-08 18:48 | NUR ---
RN CLOSING NOTE PATIENT AWAKE IN BED, ALERT ORIENTED X 3, TAMAZIGHT SPEAKING, DAUGHTER ABLE TO TRANSLATE. DAUGHTER AT BEDSIDE. ON O2 INHALATION @2LPM VIA NASAL CANULA. IV ACCESS: RCW MAURILIO CATH PATENT INTACT AND INFUSING NS KVO. NOT IN ANY FORM OF DISTRESS NOTED. ON PAIN MANAGEMENT ORDERED. MEDICATED PATIENT ORDERED,ALL NEEDS ATTENDED. SAFETY MEASURES IN PLACE: BED LOCKED AND IN LOWEST POSITION, SIDE RAILS UP X2, BED ALARM ON, CALL LIGHT IN EASY REACH.ENDORSED TO NEXT NURSE FOR AZEEM.
--- NOTE | 2022-08-08 19:30 | NUR ---
MS RN OPENING NOTE RECEIVED PATIENT FROM AM NURSE; PATIENT RESTING IN BED, A/O X 3, MACEDONIAN SPEAKING BUT DAUGHTER AT BEDSIDE, ABLE TO TRANSLATE; WITH 2LPM OXYGEN VIA NASAL CANNULA, BREATHING EVENLY AND NO S/S OF DISTRESS NOTED; WITH MAURILIO CATH ON THE RCW; WITH COLON CATHETER IN PLACE; ENCOURAGED VERBALIZATION OF NEEDS; SAFETY MEASURES IMPLEMENTED, BED LOCKED IN LOWEST POSITION, SIDE RAILS UP X 2, BED ALARM ON, CALL LIGHT AND TABLE WITHIN REACH; WILL CONTINUE TO MONITOR THROUGHOUT SHIFT
[2022-08-08 20:00] VITALS: BP 120/68; TEMP 98.8
[2022-08-08] MEDS ORDERED: CEFEPIME 1 GM VIAL IM SCH (21:00)
[2022-08-08] MEDS: CEFEPIME 1 GM in IV D5W 50 ML IV SCH (21:08)
[2022-08-08] MEDS: ENOXAPARIN SODIUM 40 MG/0.4 ML DISP.SYRIN SQ SCH (21:12)
--- NOTE | 2022-08-08 22:05 | NUR ---
MS RN NOTE DAUGHTER CAME AND INFORMED THAT HER MOTHER IS IN PAIN AND IF SHE CAN TAKE THE PAIN MEDICATION; ADMINISTERED DILAUDID PRN PRESCRIBED AT 2134H; PATIENT TOLERATED WELL AND WAS SEEN SLEEPING UPON REASSESSMENT, STILL WITH DAUGHTER AT BEDSIDE. WILL CONTINUE TO MONITOR
[2022-08-09] MEDS: HYDROCODONE/APAP 5/325MG TABLET PO PRN ×2 (02:13→12:46)
--- NOTE | 2022-08-09 02:54 | NUR ---
MS RN NOTE GRANDSON ASKED IF HER GRANDMOTHER CAN TAKE PAIN MEDICATION SHE WAS VERBALIZING FEELING IN PAIN. ADMINISTERED NORCO 5 PRN ORDERED; PATIENT TOLERATED WELL, WILL CONTINUE TO MONITOR
[2022-08-09] MEDS: HYDROMORPHONE 1 MG/1 ML DISP.SYRIN IV PRN ×3 (04:27→16:38)
--- NOTE | 2022-08-09 04:55 | NUR ---
MS RN NOTE GRANDSON APPROACHED TO INFORM THAT THE PATIENT IS VERBALIZING PAIN ON HER RIGHT HIP. ADMINISTERED DILAUDID PRN ORDERED; PATIENT TOLERATED WELL, WAS SEEN INTERMITTENTLY SLEEPING WITH GRANDSON AT BEDSIDE UPON REASSESSMENT. WILL CONTINUE TO MONITOR
--- NOTE | 2022-08-09 06:49 | NUR ---
MS RN CLOSING NOTE PATIENT IN BED, A/O X 3, URUGUAYAN SPEAKING WITH GRANDAXEL AT BEDSIDE, ABLE TO TRANSLATE; WITH 2LPM OXYGEN VIA NASAL CANNULA, BREATHING EVENLY AND NO S/S OF DISTRESS NOTED; WITH MAURILIO CATH ON THE RCW, FLUSHING WELL; WITH COLON CATHETER IN PLACE DRAINING WELL APPROXIMATELY ; ADMINISTERED MEDICATIONS PRESCRIBED; PATIENT'S NEEDS ATTENDED; PATIENT ON PAIN MANAGEMENT; SAFETY MEASURES IMPLEMENTED, BED LOCKED IN LOWEST POSITION, SIDE RAILS UP X 2, BED ALARM ON, CALL LIGHT AND TABLE WITHIN REACH; WILL ENDORSE TO AM NURSE FOR AZEEM.
--- NOTE | 2022-08-09 07:00 | NUR ---
MS RN OPENING NOTE PATIENT IN BED, A/O X 3, [place] SPEAKING WITH GRANDSON AT BEDSIDE, ABLE TO TRANSLATE; WITH 2LPM OXYGEN VIA NASAL CANNULA, BREATHING EVENLY AND NO S/S OF DISTRESS NOTED, WITH MAURILIO CATH ON THE RCW, FLUSHING WELL. COLON CATHETER IN PLACE DRAINING WELL VIA GRAVITY. PATIENT ON PAIN MANAGEMENT, SAFETY MEASURES IMPLEMENTED, BED LOCKED IN LOWEST POSITION, SIDE RAILS UP X 2, BED ALARM ON, CALL LIGHT AND TABLE WITHIN REACH; WILL CONTINUE TO MONITOR.
[2022-08-09 08:00] VITALS: BP 125/59; TEMP 98.6
[2022-08-09] MEDS: COLCHICINE 0.6 MG TABLET PO SCH (08:16)
[2022-08-09] MEDS: ASPIRIN EC 81 MG TABLET.DR PO SCH (08:16)
[2022-08-09] MEDS: PANTOPRAZOLE 40 MG TABLET.DR PO SCH (08:16)
[2022-08-09] MEDS: FUROSEMIDE 20 MG TABLET PO SCH (08:16)
[2022-08-09] MEDS: DOCUSATE SODIUM 100 MG CAPSULE PO SCH (08:16)
[2022-08-09] MEDS: LOSARTAN POTASSIUM 25 MG TABLET PO SCH (08:30)
[2022-08-09] MEDS: CARVEDILOL 6.25 MG TABLET PO SCH (08:31)
[2022-08-09] MEDS: CEFEPIME 1 GM in IV D5W 50 ML IV SCH (08:34)
[2022-08-09 09:11] LABS: BASOPHILS % (AUTO) 0.4 % (0.0-2.0); EOSINOPHILS % (AUTO) 3.1 % (0.0-6.0); HEMATOCRIT 26 % (33-45); HEMOGLOBIN 8.5 g/dL (11.5-14.8); LYMPHOCYTES # (AUTO) 1.3 K/uL (0.8-4.8); MEAN CORPUSCULAR HGB CONC 33 g/dl (31.0-36.0); MEAN CORPUSCULAR VOLUME 83 fL (82-100); MONOCYTES # (AUTO) 0.6 K/uL (0.1-1.30); MONOCYTES % (AUTO) 11.1 % (2.0-12.0); NEUTROPHILS # (AUTO) 3.1 K/uL (1.8-8.9); NEUTROPHILS % (AUTO) 60.4 % (43.0-81.0); PLATELET COUNT (AUTO) 267 K/uL (150-450); RED BLOOD CELL COUNT(AUTO) 3.14 MIL/uL (4.0-5.2); WHITE BLOOD COUNT (AUTO) 5.1 K/uL (4.3-11.0)
[2022-08-09 09:15] LABS: CALCIUM, SERUM 9.4 mg/dL (8.5-10.1); CREATININE 0.5 mg/dL (0.6-1.3); POTASSIUM 4.1 mmol/L (3.5-5.1)
[2022-08-09] MEDS: cetrizine 10 MG TABLET PO PRN (10:21)
--- NOTE | 2022-08-09 12:36 | NUR ---
RN NOTE RECEIVED REPORT FROM PATIENTS DON STATING THAT PATIENT HAS NOT HAVE ANY BOWEL MOVEMENT IN OVER 8 DAYS. JANEY PANTOJA NOTIFIED AND ORDERS RECEIVED TO GIVE ENEMA X1. ORDER CARRIED OUT.
[2022-08-09] MEDS: FENTANYL PATCH (100 MCG/HR) 100 MCG/HR PATCH.TD72 TD SCH (12:46)
[2022-08-09] MEDS ORDERED: NA PHOS,M-B/NA PHOS,DI-BA 1 EA ENEMA RC ONE (13:00)
[2022-08-09 16:00] VITALS: BP 130/72; TEMP 99.3
--- NOTE | 2022-08-09 17:32 | NUR ---
HOLE DIGGER NOTE PATIENT WAS DISCHARGED TO [facility]. PATIENT LEFT IN A STABLE CONDITION VIA AMBULANCE IN ROOM AIR WITH NO SOB, DISTRESS, O2 SAT AT 95%. PATENT LEFT WITH RIGHT PERMACATH INTACT AND FLUSHING WELL. PATIENT LEFT WITH CATHETER IN PLACE, PATENT AND FLUSHING WELL VIA GRAVITY, PATIENT WAS ABLE TO HAVE ONE BOWEL MOVEMENT TODAY. ALL DISCHARGE FORMS SIGNED ALONG WITH PATIENTS BELONGINGS. PATIENT TOOK ALL BELONGINGS WITH HER. PATIENT LEFT VIA AMBULANCE WITH TWO ENVIRONMENTAL SERVICES LEAD
== END 2022-08-09 17:41 | disposition short-term general hospital (02) | DRG 343 ==
LOC: ER 12:20 → MEDSG1 08-03 01:58
PROVIDERS: ADMIT Nurse Practitioner Acute Care; ATTEND Nurse Practitioner Acute Care
DX: M84.651A Pathological fracture in other disease, right femur, initial encounter for fracture (principal); C79.51 Secondary malignant neoplasm of bone; D61.818 Other pancytopenia; D68.59 Other primary thrombophilia; J18.9 Pneumonia, unspecified organism; E44.0 Moderate protein-calorie malnutrition; E88.09 Other disorders of plasma-protein metabolism, not elsewhere classified; C50.919 Malignant neoplasm of unspecified site of unspecified female breast; E87.6 Hypokalemia; Z92.3 Personal history of irradiation; N39.0 Urinary tract infection, site not specified; E83.42 Hypomagnesemia; Z68.21 Body mass index [BMI] 21.0-21.9, adult; B96.5 Pseudomonas (aeruginosa) (mallei) (pseudomallei) as the cause of diseases classified elsewhere; Z91.81 History of falling; Z20.822 Contact with and (suspected) exposure to COVID-19; C78.00 Secondary malignant neoplasm of unspecified lung; C78.7 Secondary malignant neoplasm of liver and intrahepatic bile duct; Z79.899 Other long term (current) drug therapy
CPT/HCPCS: 36415; 71045-TC; 73501; 73700-TC; 80048-TC; 80053-TC; 81001; 83735-TC; 84100-TC; 85025-TC; 85730-TC; 87040-TC; 87086-TC; A4223; G0378; J0692; J0696; J1170; J1650; J2405; J3010; J7030; J7040; J7050; J7060